=== PATIENT | female | born 1990 | race Two or more races ===

== ENCOUNTER → 2017-11-03 | Emergency (ER) | payer OTHER ==
[~2017-11-03] VITALS: Ht 160 cm; Wt 77.1 kg
[~2017-11-03] MED LIST: CELEBREX200MG; IOPHEN DM-100 MG/5 M PO; MOTRIN800 MG PO; ORPH100T PO; VENTOLIN HFA18 GM IH; [UNRECOGNIZED DRUG - OTHER]
== END | disposition left against medical advice (07) ==
LOC: ER 22:39
DX: Z53.20 Procedure and treatment not carried out because of patient's decision for unspecified reasons (principal)

== ENCOUNTER 2019-03-25 08:39 | Inpatient (IN) | payer OTHER ==
[~2019-03-25] VITALS: Ht 157.5 cm; Wt 77.1 kg
[2019-03-25] MEDS ORDERED: SPRINTEC 28 DA1 EACH (09:01)
[2019-03-27] MEDS ORDERED: AZITHROMYCIN250 MG PO (08:35)
[2019-03-27] MEDS ORDERED: MEDROLPACK PO (08:35)
== END 2019-03-27 12:08 | disposition home or self-care (01) | DRG 203 ==
LOC: ER 08:39 → SURH 20:20 → SURG 20:20 → SURH 03-26 11:00
PROVIDERS: ADMIT Internal Medicine
PROC: 3E0F7GC Introduction of Other Therapeutic Substance into Respiratory Tract, Via Natural or Artificial Opening (ICD-10-PCS; principal; 2019-03-25)
PROC: 8E0ZXY6 Isolation (ICD-10-PCS; 2019-03-26)
DX: J45.901 Unspecified asthma with (acute) exacerbation (principal); J45.902 Unspecified asthma with status asthmaticus; B96.0 Mycoplasma pneumoniae [M. pneumoniae] as the cause of diseases classified elsewhere

== ENCOUNTER 2019-07-24 08:20 | Emergency (ER) | payer OTHER ==
[~2019-07-24] VITALS: Ht 154.9 cm; Wt 77.1 kg
[~2019-07-24 08:20] MED LIST changes: +AZITHROMYCIN250 MG PO; +MEDROLPACK PO; +SPRINTEC 28 DA1 EACH
== END 2019-07-24 10:50 | disposition home or self-care (01) ==
LOC: ER 08:20
DX: T78.1XXA Other adverse food reactions, not elsewhere classified, initial encounter (principal); R21 Rash and other nonspecific skin eruption

== ENCOUNTER 2020-09-28 11:56 | Emergency (ER) | payer OTHER ==
[~2020-09-28] VITALS: Ht 165.1 cm; Wt 91.6 kg
[2020-09-28] MEDS ORDERED: SPRINTEC 28 DA1 EACH (12:24)
[2020-09-28] MEDS ORDERED: ZITHROMAX500 MG PO (16:43)
[2020-09-28] MEDS ORDERED: SALINE NASAL SP88 ML NASAL (16:43)
[2020-09-28] MEDS ORDERED: FLONASE ALLERG9.9 ML NASAL (16:43)
[2020-09-28] MEDS ORDERED: MUCINEX DM ER1 EAC1 PO (16:43)
== END 2020-09-28 17:06 ==
LOC: ER 11:56
DX: J32.8 Other chronic sinusitis (principal); J06.9 Acute upper respiratory infection, unspecified; Z20.822 Contact with and (suspected) exposure to COVID-19

== ENCOUNTER 2022-12-26 09:57 | Emergency (ER) | payer OTHER ==
[~2022-12-26] VITALS: Ht 162.6 cm; Wt 90.7 kg
[~2022-12-26 09:57] MED LIST changes: +FLONASE ALLERG9.9 ML NASAL; +MUCINEX DM ER1 EAC1 PO; +SALINE NASAL SP88 ML NASAL; +ZITHROMAX500 MG PO
== END 2022-12-26 13:10 | disposition home or self-care (01) ==
LOC: ER 09:57
DX: J04.0 Acute laryngitis (principal)

== ENCOUNTER 2023-04-02 10:33 | Emergency (ER) | payer OTHER ==
[~2023-04-02] VITALS: Ht 162.6 cm; Wt 94.8 kg
== END 2023-04-02 14:07 | disposition home or self-care (01) ==
LOC: ER 10:34
DX: H10.89 Other conjunctivitis (principal)

== ENCOUNTER 2024-08-06 12:12 | Emergency (ER) | payer OTHER ==
[~2024-08-06] VITALS: Ht 162.6 cm; Wt 90.7 kg
== END 2024-08-06 13:29 | disposition home or self-care (01) ==
LOC: ER 12:14
DX: H66.90 Otitis media, unspecified, unspecified ear (principal)